=== PATIENT | male | born 1985 | race African-American/Black ===

== ENCOUNTER 2016-10-07 15:28 | Emergency (ER) | payer MEDICAID ==
[~2016-10-07] VITALS: Ht 190.5 cm; Wt 106.0 kg
[~2016-10-07 15:28] MED LIST: METF500T4 PO
[2016-10-07 15:30] VITALS: BP 147/97
== END 2016-10-07 18:46 | disposition home or self-care (01) ==
LOC: ER 17:59
DX: S39.012A Strain of muscle, fascia and tendon of lower back, initial encounter (principal); E11.9 Type 2 diabetes mellitus without complications; I10 Essential (primary) hypertension; X58.XXXA Exposure to other specified factors, initial encounter; Y93.89 Activity, other specified; Y99.8 Other external cause status; Y92.89 Other specified places as the place of occurrence of the external cause
CPT/HCPCS: 99283